=== PATIENT | female | born 1930 | race Caucasian/White ===

== ENCOUNTER 2018-09-03 22:19 | Emergency (ER) | payer MEDICARE, OTHER ==
[2018-09-03 23:43] VITALS: O2SAT 98
[2018-09-04] MEDS ORDERED: TYLENOL EXTRA STRENGTH 500 MG PO STA (00:38)
[2018-09-04] MEDS ORDERED: TYLENOL EXTRA STRENGTH 500 MG ONE (00:43)
[2018-09-04] MEDS ORDERED: XYLOCAINE 2% HCL 20 ML MDV ONE (01:02)
[2018-09-04] MEDS ORDERED: XYLOCAINE 1% HCL 20 ML MDV ONE (01:07)
[2018-09-04] MEDS ORDERED: Adacel Vial IM ONE ×2 (01:24)
[2018-09-04] MEDS ORDERED: Rocephin 1000 MG INJ IM ONE (01:25)
[2018-09-04] MEDS ORDERED: Rocephin 1000 MG INJ ONE (01:31)
--- NOTE | 2018-09-04 01:31 | ERPHSYRPT ---
- History of Present Illness Source: patient Exam Limitations: no limitations Patient Subjective Stated Complaint: Pt came to the ER due to a fall Pt couldn' t go to sleep and took her soaks off and was heading into the living room and squatted down by her bed and fell on her butt and than head hit her head on Night Table Triage Nursing Assessment: Pt came to the ER due to a fall Pt couldn't go to sleep and took her soaks off and was heading into the living room and squatted down by her bed and fell on her butt and than head hit her head on Night Table, Pt has a Hematoma on the Left side of her head Bleeding Noted with wound Pt is alert orienated at this time Physician History: Pt is 88 y/o female that was trying to get out of bed, slipped and hit her head on the corner of the dresser. The pt came to the ER secondary to head bleed. She denies visual changes, LOC, F/C/S. She is denying N/V/D ora abdominal pain. Pt states, just needs Tylenol 1gr once. Timing/Duration: today Quality: painful Severity: moderate Location: scalp Possible Causes: no cause identified Allergies/Adverse Reactions: Iodinated Contrast- Oral and IV Dye [IV Dye, Iodine Containing Contrast ] Allergy (Mild, Verified 09/03/18 23:43) Hives morphine Adverse Reaction (Mild, Verified 09/03/18 23:43) Hives Home Medications: Lipitor 20MG Tablet 1 tab PO HS 01/04/12 [History] Metformin HCl 1000 mg [Glucophage 1000 MG] 500 mg PO BID 01/04/12 [History] Aspirin [Aspir 81] 81 mg PO HS 02/20/12 [History] Carvedilol 6.25 mg [Coreg 6.25 MG] 3.125 mg PO BID 11/19/13 [History] Tramadol HCl [Ultram 50 mg Tablet] 50 mg PO TIDPRN PRN 11/19/13 [History] Calcium Carbonate/Vitamin D3 [Caltrate 600 + D Tablet] 1 each PO HS 07/01/14 [ History] Multivitamin [Multi-Vitamin Daily] 1 each PO DAILY 07/01/14 [History] Niacin [Niaspan] 1,000 mg PO HS 07/01/14 [History] Hx Tetanus, Diphtheria Vaccination/Date Given: Yes Hx Influenza Vaccination/Date Given: Yes (2017) Hx Pneumococcal Vaccination/Date Given: Yes (2017) - Review of Systems Constitutional: No Fever, No Chills Respiratory: No Cough, No Dyspnea Cardiac: No Chest Pain, No Edema, No Syncope Abdominal/Gastrointestinal: No Abdominal Pain, No Nausea, No Vomiting, No Diarrhea Skin: Other (scalp laceration) - Past Medical History Pertinent Past Medical History: Yes Neurological History: No Pertinent History ENT History: Cataracts Cardiac History: High Cholesterol, Other Respiratory History: No Pertinent History Endocrine Medical History: Diabetes Type II Musculoskeletal History: Arthritis, Degenerative Disk Disease GI Medical History: No Pertinent History History: No Pertinent History Psycho-Social History: No Pertinent History Female Reproductive Disorders: Other Other Medical History: B Shoulder Pain, Shoulder Tendinitis, Tenosynovitis, Scapulalgia, Breast Cancer, Right ovary removed - Past Surgical History Past Surgical History: Yes Neuro Surgical History: No Pertinent History Cardiac: Angioplasty, Cardiac Catheterization Respiratory: No Pertinent History Gastrointestinal: Cholecystectomy, Pancreatic Surgery Genitourinary: No Pertinent History Musculoskeletal: Orthopedic Surgery Female Surgical History: Tubal Ligation, Other Other Surgical History: asim knee replacement ,oopherectomy x one,ovarian cyst, - Social History Smoking Status: Former smoker Exposure to second hand smoke: No Drug Use: none Patient Lives Alone: No - Nursing Vital Signs Nursing Vital Signs: Initial Vital Signs Temperature 98.0 F 09/03/18 23:14 Pulse Rate 76 09/03/18 23:14 Respiratory Rate 18 09/03/18 23:14 Blood Pressure 151/86 09/03/18 23:14 O2 Sat by Pulse Oximetry 98 09/03/18 23:14 Pain Scale Pain Intensity 8 - Physical Exam General Appearance: no apparent distress, alert Respiratory Exam: normal breath sounds, lungs clear, No respiratory distress Cardiovascular Exam: regular rate/rhythm, normal heart sounds Gastrointestinal/Abdomen Exam: soft, mass, No tenderness Skin Exam: laceration (scalp laceration 2cm) SpO2: 98 Procedures - Laceration/Wound Repair Occipital Wound Location: head Wound Length (cm): 2 Wound Explored: contaminated Irrigated: Yes Hibiclens Prep: Yes Anesthesia: 1% Lidocaine Volume Anesthetic (ccs): 6 Wound Debrided: minimal Wound Repaired With: Lise (5 lise) Sterile Dressing Applied?: Yes - Course Nursing assessment & vital signs reviewed: Yes - CT Exams Head CT Interpretation: Tele-radiologist Report (No intracranial injury or bleed.) Ordered Tests: Active Orders 24 hr Category Date Time Status HEAD WITHOUT CONTRAST [CT] Stat Exams 09/03/18 23:08 Taken Medication Summary Discontinued Medications Generic Name Dose Route Start Last Admin Trade Name Angie PRN Reason Stop Dose Admin Acetaminophen 1,000 mg 09/04/18 00:38 09/04/18 00:45 Tylenol Extra Strength 500 Mg PO 09/04/18 00:39 1,000 mg STAT STA Administration Acetaminophen Confirm 09/04/18 00:43 Tylenol Extra Strength 500 Mg Administered 09/04/18 00:44 Dose 1,000 mg .ROUTE .STK-MED ONE Ceftriaxone Sodium 1,000 mg 09/04/18 01:25 Rocephin 1000 Mg Inj IM 09/04/18 01:26 STAT ONE Diphtheria/Tetanus/Acell Pertussis 0.5 ml 09/04/18 01:24 Adacel Vial IM 09/04/18 01:25 .ONCE ONE Diphtheria/Tetanus/Acell Pertussis Confirm 09/04/18 01:24 Adacel Vial Administered 09/04/18 01:25 Dose 0.5 ml IM .STK-MED ONE Lidocaine HCl Confirm 09/04/18 01:02 Xylocaine 2% Hcl 20 Ml Mdv Administered 09/04/18 01:03 Dose 10 ml .ROUTE .STK-MED ONE Lidocaine HCl Confirm 09/04/18 01:07 Xylocaine 1% Hcl 20 Ml Mdv Administered 09/04/18 01:08 Dose 10 ml .ROUTE .STK-MED ONE - Progress Progress: improved Progress Note: 09/04/18 01:36 Pt had the area cleaned, the hair was cleaned and shaven, lidocaine was injected , and when pt was comfortable, 5 lise were placed. The pt tolerated the procedure well. Tetanus and Ceftriaxone IM were given. Pt was instructed to not wash her hair today, and follow up with her PCP in 7-10 days to remove the lise. Discussed with : Pepe Will see patient in: office Counseled pt/family regarding: need for follow-up - Departure Time of Disposition: 01:39 Departure Disposition: Home Clinical Impression: Scalp laceration Condition: Stable Critical Care Time: No Referrals: ANNE PATE MD [Primary Care Provider] - Additional Instructions: F/U with PCP to remove lise in 7-10 days.
[2018-09-04 01:48] VITALS: BP 110/70; PULSE 85
--- NOTE | 2018-09-04 09:06 | XRAY ---
Indication: Head injury/laceration following fall. Multiple contiguous axial images obtained through the head without contrast. Comparison: November 19, 2013. Again age-appropriate global atrophy and mild periventricular degenerative micro-ischemia bilaterally. No acute intracranial hemorrhage, abnormal extra-axial fluid collection, or mass effect. Fourth ventricle is midline without hydrocephalus. New small left posterior parietal scalp hematoma. Bony calvarium intact. Visualized paranasal sinuses and mastoid air cells are clear. Impression: 1. New left scalp hematoma without underlying fracture or acute intracranial hemorrhage. 2. Stable nonacute senile brain. Comment: Preliminary interpretation was made by [facility]. No critical discrepancy. CT DI 50.75
== END 2018-09-04 01:59 | disposition home or self-care (01) ==
LOC: ED 22:19
DX: S01.01XA Laceration without foreign body of scalp, initial encounter (principal); W01.190A Fall on same level from slipping, tripping and stumbling with subsequent striking against furniture, initial encounter; Z79.899 Other long term (current) drug therapy; E78.00 Pure hypercholesterolemia, unspecified; E11.9 Type 2 diabetes mellitus without complications; A35 Other tetanus; Z23 Encounter for immunization
CPT/HCPCS: 12002; 70450; 90471; 90715; 96372; 99284; J0696; A9270-GY